=== PATIENT | male | born 1955 | race Caucasian/White ===

== ENCOUNTER 2019-07-14 06:29 | Day surgery (SDC) | payer OTHER ==
[~2019-07-14] VITALS: Ht 167.6 cm; Wt 97.7 kg
[~2019-07-14 06:29] MED LIST: ASPI81CH PO; LISI20 PO; Metoprolol Succ25 MG PO; NAPR550 PO; Percocet 5-3251 EACH PO
--- NOTE | 2019-07-14 07:56 | NUR ---
07/14/[address] NOTIFIED OF INCREASE BP. PT. IS VERY NERVOUS. NO ORDERS GIVEN
== END 2019-07-14 09:07 | disposition home or self-care (01) ==
LOC: ORSCSDS 06:29
PROVIDERS: Internal Medicine Gastroenterology
PROC: 0DBN8ZX Excision of Sigmoid Colon, Via Natural or Artificial Opening Endoscopic, Diagnostic (ICD-10-PCS; principal; 2019-07-14 08:00)
DX: Z12.11 Encounter for screening for malignant neoplasm of colon (principal); K63.5 Polyp of colon; K57.30 Diverticulosis of large intestine without perforation or abscess without bleeding; K64.8 Other hemorrhoids; I10 Essential (primary) hypertension; F17.210 Nicotine dependence, cigarettes, uncomplicated; Z79.82 Long term (current) use of aspirin; Z79.899 Other long term (current) drug therapy
CPT/HCPCS: 88305; J0461; J2405; J2704; J7120